=== PATIENT | male | born 1945 | race Caucasian/White ===

== ENCOUNTER → 2018-11-09 | Outpatient (CLI) | payer MEDICARE, OTHER ==
[~2018-11-09] MED LIST: FISH OIL 1,2001 EAC2
== END | disposition home or self-care (01) ==
LOC: PLD 11:38 → LAB SHORT 11:38
DX: D04.61 Carcinoma in situ of skin of right upper limb, including shoulder (principal)
CPT/HCPCS: 88305

== ENCOUNTER → 2018-12-06 | Outpatient (CLI) | payer MEDICARE, OTHER | END | disposition home or self-care (01) | LOC: PLD 13:40 → LAB SHORT 13:40 | DX: C44.622 Squamous cell carcinoma of skin of right upper limb, including shoulder (principal) | CPT/HCPCS: 88305 ==

== ENCOUNTER 2020-04-02 09:09 | Day surgery (SDC) | payer MEDICARE, OTHER ==
[~2020-04-02] VITALS: Ht 180.3 cm; Wt 78.1 kg
[~2020-04-02 09:09] MED LIST changes: +TAMS.4ER
== END 2020-04-02 11:17 | disposition home or self-care (01) ==
LOC: ORSCSDS 09:09
PROVIDERS: Surgery
PROC: 0DJD8ZZ Inspection of Lower Intestinal Tract, Via Natural or Artificial Opening Endoscopic (ICD-10-PCS; principal; 2020-04-02 10:30)
DX: Z12.11 Encounter for screening for malignant neoplasm of colon (principal); Z86.010 Personal history of colon polyps; K21.9 Gastro-esophageal reflux disease without esophagitis; F32.9 Major depressive disorder, single episode, unspecified; E78.5 Hyperlipidemia, unspecified; Z87.891 Personal history of nicotine dependence; Z79.899 Other long term (current) drug therapy
CPT/HCPCS: J2405; J2704; J7120

== ENCOUNTER → 2022-03-26 | Outpatient (CLI) | payer MEDICARE, OTHER | END | disposition home or self-care (01) | LOC: LAB SHORT 12:40 | DX: R31.9 Hematuria, unspecified (principal) | CPT/HCPCS: 87086 ==

== ENCOUNTER → 2024-01-25 | Outpatient (CLI) | payer MEDICARE, OTHER | LOC: LAB SHORT 12:04 → LAB 12:04 | DX: L08.0 Pyoderma (principal) | CPT/HCPCS: 87070; 87205 ==